=== PATIENT | male | born 1965 | race Caucasian/White ===

== ENCOUNTER 2019-01-19 07:55 | Day surgery (SDC) | payer OTHER ==
[2019-01-17 11:57] VITALS: BMI 26.1
[2019-01-19] MEDS ORDERED: LIDOCAINE HCL/PF 2% SDV 5ML VIAL ONE (08:49)
[2019-01-19] MEDS ORDERED: PROPOFOL 20 ML ONE ×2 (08:49)
[2019-01-19 17:41] VITALS: BP 144/97; PULSE 72; TEMP 97.9
--- NOTE | 2019-01-21 14:56 | PATH ---
Surgical Pathology Report Patient Name: MILLICENT JENNINGS [facility]. Rec. #: [id number] /Age/Gender: 1965 (Age: 53) / M Account: [id number] Location: [facility] Taken: 01/19/2019 Received: 01/19/2019 Reported: 01/21/2019 Physicians: Jc Ireland M.D. Specimen(s) Received A: POLYP RIGHT COLON B: POLYP HEPATIC FLEXURE C: POLYP PROXIMAL SIGMOID COLON D: POLYP DISTAL SIGMOID COLON Clinical History Screening Postoperative diagnosis: Diverticulosis, colon polyps Final Diagnosis A. RIGHT COLON, POLYP, BIOPSY: TUBULAR ADENOMA. B. HEPATIC FLEXURE, POLYP, BIOPSY: TUBULAR ADENOMA. C. PROXIMAL SIGMOID COLON, POLYP, BIOPSY: HYPERPLASTIC POLYP. D. DISTAL SIGMOID COLON, POLYP, BIOPSY: HYPERPLASTIC POLYP. Electronically Signed Shima Thomas M.D. Gross Description A. Received in formalin, labeled "biopsy polyp right colon" is a granados, irregular portion of soft tissue measuring 0.5 cm. in greatest dimension. The specimen is submitted in toto in one cassette. B. Received in formalin, labeled "biopsy polyp hepatic flexure" is a granados, irregular portion of soft tissue measuring 0.2 cm. in greatest dimension. The specimen is submitted in toto in one cassette. C. Received in formalin, labeled "biopsy polyp proximal sigmoid colon" is a granados, irregular portion of soft tissue measuring 0.2 cm. in greatest dimension. The specimen is submitted in toto in one cassette. D. Received in formalin, labeled "biopsy polyp distal sigmoid colon" is a granados, irregular portion of soft tissue measuring 0.2 cm. in greatest dimension. The specimen is submitted in toto in one cassette. 01/20/2019 saudi01/20/2019
== END 2019-01-19 10:22 | disposition home or self-care (01) ==
LOC: FASU-ENDO 07:55
PROVIDERS: ATTEND Internal Medicine Gastroenterology
PROC: 0DBL8ZX Excision of Transverse Colon, Via Natural or Artificial Opening Endoscopic, Diagnostic (ICD-10-PCS; 2019-01-19)
PROC: 0DBN8ZX Excision of Sigmoid Colon, Via Natural or Artificial Opening Endoscopic, Diagnostic (ICD-10-PCS; 2019-01-19)
PROC: 0DBN8ZX Excision of Sigmoid Colon, Via Natural or Artificial Opening Endoscopic, Diagnostic (ICD-10-PCS; 2019-01-19)
PROC: 0DBK8ZX Excision of Ascending Colon, Via Natural or Artificial Opening Endoscopic, Diagnostic (ICD-10-PCS; principal; 2019-01-19 09:36)
DX: Z12.11 Encounter for screening for malignant neoplasm of colon (principal); D12.2 Benign neoplasm of ascending colon; D12.3 Benign neoplasm of transverse colon; D12.5 Benign neoplasm of sigmoid colon; K57.30 Diverticulosis of large intestine without perforation or abscess without bleeding
CPT/HCPCS: 88305-TC

== ENCOUNTER 2020-08-07 11:07 | Emergency (ER) | payer OTHER ==
[2020-08-07 11:17] VITALS: TEMP 97.9; BMI 26.8
[2020-08-07] MEDS ORDERED: FAMOTIDINE 20 MG/50 ML IVPB 20 MG/50 ML MG IVPB ONE ×2 (11:34→11:41)
[2020-08-07] MEDS ORDERED: methylPREDNISolone NA SUCC 125 MG/2 ML VIAL IVPUSH ONE (11:34)
[2020-08-07] MEDS ORDERED: methylPREDNISolone NA SUCC 125 MG/2 ML VIAL ONE (11:41)
[2020-08-07 13:06] VITALS: BP 149/94; PULSE 68
== END 2020-08-07 15:13 | disposition home or self-care (01) ==
LOC: JER 11:07
PROC: 3E033GC Introduction of Other Therapeutic Substance into Peripheral Vein, Percutaneous Approach (ICD-10-PCS; principal; 2020-08-07)
PROC: 3E033GC Introduction of Other Therapeutic Substance into Peripheral Vein, Percutaneous Approach (ICD-10-PCS; 2020-08-07)
PROC: 3E033GC Introduction of Other Therapeutic Substance into Peripheral Vein, Percutaneous Approach (ICD-10-PCS; 2020-08-07)
DX: T78.3XXA Angioneurotic edema, initial encounter (principal)
CPT/HCPCS: 99284-25

== ENCOUNTER 2021-12-30 11:02 | Day surgery (SDC) | payer OTHER ==
[2021-12-26 15:21] VITALS: BMI 25.8
[2021-12-30 13:00] VITALS: RESP 18
[2021-12-30 13:38] VITALS: TEMP 97.8
[2021-12-30 13:39] VITALS: BP 128/79; PULSE 79
== END 2021-12-30 13:39 | disposition home or self-care (01) ==
LOC: FASU-ENDO 11:02
PROVIDERS: ATTEND Internal Medicine Gastroenterology
PROC: 0DBM8ZX Excision of Descending Colon, Via Natural or Artificial Opening Endoscopic, Diagnostic (ICD-10-PCS; principal; 2021-12-30 12:46)
DX: Z12.11 Encounter for screening for malignant neoplasm of colon (principal); Z86.010 Personal history of colon polyps; K63.5 Polyp of colon; K57.30 Diverticulosis of large intestine without perforation or abscess without bleeding
CPT/HCPCS: 88305-TC

== ENCOUNTER 2022-06-12 19:32 | Inpatient (IN) | payer OTHER ==
[2022-06-12 20:19] LABS: PH,URINE 6.5 (5.0-8.0); URINE APPEARANCE CLEAR; URINE BILIRUBIN NEGATIVE (NEGATIVE); URINE COLOR YELLOW; URINE GLUCOSE (UA) NEGATIVE (NEGATIVE); URINE KETONE TRACE (NEGATIVE); URINE LEUK ESTERASE NEGATIVE (NEGATIVE); URINE NITRITE NEGATIVE (NEGATIVE); URINE PROTEIN NEGATIVE (NEGATIVE); URINE UROBILINOGEN 0.2 mg/dL (0.2-1.0)
[2022-06-12] MEDS ORDERED: morphine SULFATE 4 MG/ML VIAL ONE (20:33)
[2022-06-12] MEDS ORDERED: morphine CARPU-JECT 4 MG/1 ML DISP.SYRIN IVPUSH ONE (20:33)
[2022-06-12 20:42] LABS: BASO % 0.5 % (0-2.0); EOS % 0.6 % (0-4.5); HEMATOCRIT 40.3 % (35.4-49); HEMOGLOBIN 13.9 GM/dL (11.7-16.9); LYMPH % 8.4 % (8-40); MCH 30.8 pg (25.7-33.7); MCHC 34.5 g/dl (32.0-35.9); MEAN CELL VOLUME 89.2 fl (80-96); MEAN PLT VOLUME 9.6 fl (7.5-11.1); MONO % 5.6 % (3.8-10.2); NEUT % 84.9 % (42.8-82.8); PLATELET COUNT 239 10^3/uL (134-434); RBC 4.51 M/mm3 (4.00-5.60); RDW 13.1 % (11.9-15.9); WHITE BLOOD COUNT 13.8 K/mm3 (4.0-10.0)
[2022-06-12 20:50] LABS: INR 0.97 (0.83-1.09); PROTHROMBIN TIME (PATIENT) 11.2 SEC (9.7-13.0)
[2022-06-12 20:53] LABS: ACTIVATED PTT 29.9 SECONDS (25.2-36.5)
[2022-06-12 21:02] LABS: CALCIUM 8.9 mg/dL (8.5-10.1)
[2022-06-12 21:03] LABS: ALBUMIN 3.6 g/dl (3.4-5.0); BLOOD UREA NITROGEN 12.5 mg/dL (7-18)
[2022-06-12 21:05] LABS: CREATININE 1.1 mg/dL (0.55-1.3)
[2022-06-12 21:07] LABS: BILIRUBIN,TOTAL 0.4 mg/dL (0.2-1); TOT PROT 7.1 g/dl (6.4-8.2)
[2022-06-12] MEDS ORDERED: morphine CARPU-JECT 2 MG/1 ML DISP.SYRIN IVPUSH ONE (23:46)
[2022-06-13] MEDS ORDERED: KETOROLAC TROMETHAMINE 15 MG/ML VIAL IVPUSH PRN (00:14)
[2022-06-13] MEDS ORDERED: ACETAMINOPHEN 1000 MG/100 ML BAG IVPB PRN (00:14)
[2022-06-13] MEDS ORDERED: MELATONIN 5 MG TABLETS PO PRN (00:15)
[2022-06-13] MEDS ORDERED: SODIUM CHLORIDE 1,000 ML IV SCH ×2 (00:30→14:45)
[2022-06-13] MEDS ORDERED: CEFTRIAXONE 2 GM/100 ML BAG IVPB ONE (02:19)
[2022-06-13] MEDS: CEFTRIAXONE 2 GM/100 ML BAG IVPB SCH (02:23)
[2022-06-13 03:56] VITALS: BMI 23.8
[2022-06-13] MEDS ORDERED: TAMSULOSIN HCL 0.4 MG CAP PO SCH (08:30)
[2022-06-13 09:02] LABS: BASO % 0.6 % (0-2.0); EOS % 1.6 % (0-4.5); HEMATOCRIT 40.4 % (35.4-49); HEMOGLOBIN 13.8 GM/dL (11.7-16.9); LYMPH % 12.3 % (8-40); MCH 30.4 pg (25.7-33.7); MCHC 34.2 g/dl (32.0-35.9); MEAN CELL VOLUME 88.8 fl (80-96); MEAN PLT VOLUME 10.2 fl (7.5-11.1); MONO % 8.4 % (3.8-10.2); NEUT % 77.1 % (42.8-82.8); PLATELET COUNT 226 10^3/uL (134-434); RBC 4.55 M/mm3 (4.00-5.60); RDW 13.2 % (11.9-15.9); WHITE BLOOD COUNT 8.9 K/mm3 (4.0-10.0)
[2022-06-13 09:20] LABS: CALCIUM 8.7 mg/dL (8.5-10.1)
[2022-06-13 09:21] LABS: ALBUMIN 3.3 g/dl (3.4-5.0); BLOOD UREA NITROGEN 10.8 mg/dL (7-18); MAGNESIUM 2.1 mg/dL (1.8-2.4)
[2022-06-13 09:24] LABS: CREATININE 0.9 mg/dL (0.55-1.3); PHOSPHOROUS 2.8 mg/dL (2.5-4.9)
[2022-06-13 09:25] LABS: BILIRUBIN,TOTAL 1.1 mg/dL (0.2-1); TOT PROT 6.6 g/dl (6.4-8.2)
[2022-06-13] MEDS: ENOXAPARIN NA (PORCINE) 40 MG/0.4 ML DISP.SYRIN SQ SCH (10:02)
[2022-06-13] MEDS ORDERED: INSULIN (NOVOLOG) ASPART 100 UNITS/ML 10ML VIAL ONE (12:20)
[2022-06-13] MEDS ORDERED: DEXTROSE 5%-NORMAL SALINE 1,000 ML IV SCH (17:45)
[2022-06-13] MEDS: traMADol HCL 50 MG TABLET PO PRN (22:44)
[2022-06-13] MEDS: TAMSULOSIN HCL 0.4 MG CAP PO SCH (22:46)
[2022-06-14 09:10] LABS: BASO % 0.9 % (0-2.0); EOS % 4.5 % (0-4.5); HEMATOCRIT 41.1 % (35.4-49); HEMOGLOBIN 13.8 GM/dL (11.7-16.9); LYMPH % 23.1 % (8-40); MCH 30.5 pg (25.7-33.7); MCHC 33.5 g/dl (32.0-35.9); MEAN PLT VOLUME 9.8 fl (7.5-11.1); MONO % 9.4 % (3.8-10.2); NEUT % 62.1 % (42.8-82.8); PLATELET COUNT 243 10^3/uL (134-434); RBC 4.52 M/mm3 (4.00-5.60); WHITE BLOOD COUNT 5.1 K/mm3 (4.0-10.0)
[2022-06-14 09:21] LABS: ALBUMIN 3.3 g/dl (3.4-5.0); BLOOD UREA NITROGEN 7.8 mg/dL (7-18)
[2022-06-14 09:23] LABS: MAGNESIUM 2.3 mg/dL (1.8-2.4)
[2022-06-14 09:24] LABS: CALCIUM 8.8 mg/dL (8.5-10.1); CREATININE 0.9 mg/dL (0.55-1.3)
[2022-06-14 09:26] LABS: TOT PROT 6.8 g/dl (6.4-8.2)
[2022-06-14 10:57] LABS: URIC ACID 5.8 mg/dL (2.6-7.2)
[2022-06-14] MEDS: ENOXAPARIN NA (PORCINE) 40 MG/0.4 ML DISP.SYRIN SQ SCH (10:57)
[2022-06-14] MEDS: CEFTRIAXONE 2 GM/100 ML BAG IVPB SCH (10:59)
[2022-06-14] MEDS ORDERED: CEFTRIAXONE 2 GM in DEXTROSE 5%-WATER 100 ML IVPB SCH (11:00)
[2022-06-14] MEDS: PANTOPRAZOLE SODIUM 40 MG VIAL IVPUSH SCH (11:50)
[2022-06-14] MEDS: AMINO ACIDS 4.25%/D5W 1,000 ML IV SCH ×2 (12:19→22:25)
[2022-06-14] MEDS ORDERED: ACETAMINOPHEN 1000 MG/100 ML BAG IVPB ONE (12:45)
[2022-06-14] MEDS ORDERED: LIDOCAINE 5% TOPICAL PATCH TP ONE (15:05)
[2022-06-14] MEDS: PIPERACILLIN/TAZOB 3.375 GM 3.375 GM in DEXTROSE 5%-WATER - 50 ML IVPB SCH (17:43)
[2022-06-14] MEDS: TAMSULOSIN HCL 0.4 MG CAP PO SCH (22:26)
[2022-06-14] MEDS: LIDOCAINE PATCH REMOVAL MC SCH (23:05)
[2022-06-15] MEDS: PIPERACILLIN/TAZOB 3.375 GM 3.375 GM in DEXTROSE 5%-WATER - 50 ML IVPB SCH ×3 (02:25→17:50)
[2022-06-15] MEDS: AMINO ACIDS 4.25%/D5W 1,000 ML IV SCH ×4 (02:42→22:04)
[2022-06-15 09:36] LABS: BASO % 0.3 % (0-2.0); EOS % 4.6 % (0-4.5); HEMATOCRIT 36.8 % (35.4-49); HEMOGLOBIN 12.6 GM/dL (11.7-16.9); MCH 30.8 pg (25.7-33.7); MCHC 34.2 g/dl (32.0-35.9); MEAN CELL VOLUME 89.9 fl (80-96); MEAN PLT VOLUME 9.9 fl (7.5-11.1); MONO % 8.4 % (3.8-10.2); NEUT % 71.7 % (42.8-82.8); PLATELET COUNT 232 10^3/uL (134-434); RBC 4.09 M/mm3 (4.00-5.60); RDW 13.1 % (11.9-15.9); WHITE BLOOD COUNT 6.1 K/mm3 (4.0-10.0)
[2022-06-15 10:04] LABS: CALCIUM 8.7 mg/dL (8.5-10.1)
[2022-06-15 10:05] LABS: BLOOD UREA NITROGEN 11.2 mg/dL (7-18); MAGNESIUM 2.2 mg/dL (1.8-2.4)
[2022-06-15 10:08] LABS: CREATININE 0.8 mg/dL (0.55-1.3)
[2022-06-15 10:10] LABS: BILIRUBIN,TOTAL 0.9 mg/dL (0.2-1); TOT PROT 6.2 g/dl (6.4-8.2)
[2022-06-15] MEDS: ENOXAPARIN NA (PORCINE) 40 MG/0.4 ML DISP.SYRIN SQ SCH (11:13)
[2022-06-15] MEDS: PANTOPRAZOLE SODIUM 40 MG VIAL IVPUSH SCH (11:14)
[2022-06-15] MEDS: TAMSULOSIN HCL 0.4 MG CAP PO SCH (22:03)
[2022-06-15] MEDS: LIDOCAINE PATCH REMOVAL MC SCH (22:04)
[2022-06-16] MEDS: PIPERACILLIN/TAZOB 3.375 GM 3.375 GM in DEXTROSE 5%-WATER - 50 ML IVPB SCH ×3 (02:09→17:24)
[2022-06-16] MEDS: AMINO ACIDS 4.25%/D5W 1,000 ML IV SCH ×2 (06:41→19:27)
[2022-06-16] MEDS: PANTOPRAZOLE SODIUM 40 MG VIAL IVPUSH SCH (10:47)
[2022-06-16] MEDS: ENOXAPARIN NA (PORCINE) 40 MG/0.4 ML DISP.SYRIN SQ SCH (10:50)
[2022-06-16 11:49] LABS: BASO % 0.8 % (0-2.0); EOS % 3.5 % (0-4.5); HEMATOCRIT 41.9 % (35.4-49); HEMOGLOBIN 14.4 GM/dL (11.7-16.9); LYMPH % 16.1 % (8-40); MCH 30.9 pg (25.7-33.7); MCHC 34.4 g/dl (32.0-35.9); MEAN PLT VOLUME 9.6 fl (7.5-11.1); NEUT % 73.6 % (42.8-82.8); PLATELET COUNT 282 10^3/uL (134-434); RBC 4.66 M/mm3 (4.00-5.60); RDW 12.9 % (11.9-15.9); WHITE BLOOD COUNT 5.9 K/mm3 (4.0-10.0)
[2022-06-16 12:14] LABS: ALBUMIN 3.5 g/dl (3.4-5.0); BLOOD UREA NITROGEN 15.3 mg/dL (7-18); CALCIUM 9.5 mg/dL (8.5-10.1)
[2022-06-16 12:15] LABS: MAGNESIUM 2.2 mg/dL (1.8-2.4)
[2022-06-16 12:17] LABS: CREATININE 0.8 mg/dL (0.55-1.3)
[2022-06-16 12:18] LABS: BILIRUBIN,TOTAL 0.8 mg/dL (0.2-1); TOT PROT 7.3 g/dl (6.4-8.2)
[2022-06-16] MEDS: TAMSULOSIN HCL 0.4 MG CAP PO SCH (22:33)
[2022-06-16] MEDS: LIDOCAINE PATCH REMOVAL MC SCH (22:34)
[2022-06-16] MEDS: traMADol HCL 50 MG TABLET PO PRN (22:41)
[2022-06-17] MEDS: PIPERACILLIN/TAZOB 3.375 GM 3.375 GM in DEXTROSE 5%-WATER - 50 ML IVPB SCH ×3 (01:14→17:53)
[2022-06-17 09:04] LABS: EOS % 3.8 % (0-4.5); HEMOGLOBIN 14.3 GM/dL (11.7-16.9); LYMPH % 18.1 % (8-40); MCH 30.9 pg (25.7-33.7); MCHC 34.7 g/dl (32.0-35.9); MEAN CELL VOLUME 88.9 fl (80-96); MEAN PLT VOLUME 9.2 fl (7.5-11.1); MONO % 6.1 % (3.8-10.2); PLATELET COUNT 287 10^3/uL (134-434); RBC 4.62 M/mm3 (4.00-5.60); RDW 12.8 % (11.9-15.9); WHITE BLOOD COUNT 5.3 K/mm3 (4.0-10.0)
[2022-06-17 09:34] LABS: ALBUMIN 3.6 g/dl (3.4-5.0); BLOOD UREA NITROGEN 12.6 mg/dL (7-18); CALCIUM 9.4 mg/dL (8.5-10.1); MAGNESIUM 2.3 mg/dL (1.8-2.4)
[2022-06-17 09:39] LABS: BILIRUBIN,TOTAL 0.7 mg/dL (0.2-1); TOT PROT 7.3 g/dl (6.4-8.2)
[2022-06-17 09:40] LABS: CREATININE 0.9 mg/dL (0.55-1.3)
[2022-06-17] MEDS: ENOXAPARIN NA (PORCINE) 40 MG/0.4 ML DISP.SYRIN SQ SCH (10:31)
[2022-06-17] MEDS: PANTOPRAZOLE SODIUM 40 MG VIAL IVPUSH SCH (10:31)
[2022-06-17] MEDS ORDERED: INSULIN (NOVOLOG) ASPART 100 UNITS/ML 10ML VIAL ONE (10:47)
[2022-06-17] MEDS ORDERED: ACETAMINOPHEN 500 MG TABLET (FP) PO PRN (17:57)
[2022-06-17] MEDS: TAMSULOSIN HCL 0.4 MG CAP PO SCH (22:03)
[2022-06-18] MEDS: PIPERACILLIN/TAZOB 3.375 GM 3.375 GM in DEXTROSE 5%-WATER - 50 ML IVPB SCH ×2 (02:02→09:24)
[2022-06-18] MEDS: ENOXAPARIN NA (PORCINE) 40 MG/0.4 ML DISP.SYRIN SQ SCH (09:23)
[2022-06-18 09:58] LABS: BASO % 1.1 % (0-2.0); EOS % 4.2 % (0-4.5); HEMATOCRIT 40.2 % (35.4-49); HEMOGLOBIN 13.9 GM/dL (11.7-16.9); LYMPH % 22.4 % (8-40); MCH 30.9 pg (25.7-33.7); MCHC 34.6 g/dl (32.0-35.9); MEAN CELL VOLUME 89.3 fl (80-96); MEAN PLT VOLUME 9.8 fl (7.5-11.1); MONO % 7.9 % (3.8-10.2); NEUT % 64.4 % (42.8-82.8); PLATELET COUNT 281 10^3/uL (134-434); RDW 12.9 % (11.9-15.9); WHITE BLOOD COUNT 4.8 K/mm3 (4.0-10.0)
[2022-06-18 10:00] VITALS: BP 138/92; PULSE 76; RESP 20; TEMP 98.6
[2022-06-18] MEDS ORDERED: PANTOPRAZOLE 40 MG TABLET PO SCH (10:00)
[2022-06-18 10:20] LABS: CALCIUM 9.2 mg/dL (8.5-10.1)
[2022-06-18 10:21] LABS: ALBUMIN 3.5 g/dl (3.4-5.0); BLOOD UREA NITROGEN 9.8 mg/dL (7-18); MAGNESIUM 2.4 mg/dL (1.8-2.4)
[2022-06-18 10:24] LABS: CREATININE 0.9 mg/dL (0.55-1.3)
[2022-06-18 10:25] LABS: BILIRUBIN,TOTAL 0.4 mg/dL (0.2-1)
[2022-06-18] MEDS ORDERED: FUROSEMIDE 40 MG/4 ML INJECTABLE VIAL IVPUSH ONE (10:55)
== END 2022-06-18 14:15 | disposition home or self-care (01) | DRG 392 ==
LOC: JER 19:32 → JERBED 23:47 → INTOOBSV 23:47 → J8W 06-13 02:51 → OBSVTOIN 06-13 14:39
PROVIDERS: ADMIT Internal Medicine; ATTEND Nurse Practitioner Acute Care
DX: K57.32 Diverticulitis of large intestine without perforation or abscess without bleeding (principal); I10 Essential (primary) hypertension; N40.0 Benign prostatic hyperplasia without lower urinary tract symptoms; K76.0 Fatty (change of) liver, not elsewhere classified; M25.572 Pain in left ankle and joints of left foot; F10.90 Alcohol use, unspecified, uncomplicated
CPT/HCPCS: 0241U-QW; 36415; 73610-TC-LT-FY; 73630-TC-LT; 74177-TC; 80053; 81003; 83690; 83735; 84100; 84550; 85025; 85610; 85730; 87086; 93005; 93010; 93306-TC; 99285-25; G0378; Q9967

== ENCOUNTER 2022-09-01 08:33 | Emergency (ER) | payer OTHER ==
[2022-09-01 08:50] VITALS: BP 157/96; PULSE 75; RESP 18; TEMP 98.3; BMI 25.8
== END 2022-09-01 10:18 | disposition home or self-care (01) ==
LOC: JER 08:33 → JERFT 08:33
DX: M79.672 Pain in left foot (principal); D16.32 Benign neoplasm of short bones of left lower limb; M79.674 Pain in right toe(s); M79.675 Pain in left toe(s); M79.89 Other specified soft tissue disorders
CPT/HCPCS: 73660-TC-FY; 99283-25

== ENCOUNTER 2022-12-22 04:05 | Day surgery (SDC) | payer OTHER ==
[2022-12-19 10:56] VITALS: BMI 25.2
[2022-12-22] MEDS ORDERED: PROPOFOL 20 ML ONE (09:58)
[2022-12-22] MEDS ORDERED: MIDAZOLAM HCL 2 MG/2 ML SINGLE DOSE VIAL ONE (09:58)
[2022-12-22] MEDS ORDERED: ceFAZolin SODIUM 1 GM VIAL ONE (10:10)
[2022-12-22] MEDS ORDERED: ceFAZolin SODIUM 1 GM VIAL IVPB ONE (10:11)
[2022-12-22] MEDS ORDERED: ONDANSETRON 4 MG/2 ML VIAL ONE (10:12)
[2022-12-22] MEDS ORDERED: DEXAMETHASONE SOD PHOSPHATE 4 MG/1 ML VIAL ONE (10:12)
[2022-12-22] MEDS ORDERED: ONDANSETRON 4 MG/2 ML VIAL IVPUSH PRN (11:03)
[2022-12-22] MEDS: LACTATED RINGERS SOLUTION 1,000 ML IV SCH (12:50)
[2022-12-22 18:23] VITALS: RESP 18
[2022-12-22] MEDS ORDERED: ACETAMINOPHEN 325 MG TABLET (FP) PO PRN (20:58)
[2022-12-23 06:32] VITALS: BP 127/78
[2022-12-23] MEDS: LACTATED RINGERS SOLUTION 1,000 ML IV SCH (06:53)
[2022-12-23 10:43] VITALS: PULSE 69; TEMP 98.5
== END 2022-12-23 14:06 | disposition home or self-care (01) ==
LOC: JASUSAT 04:05 → J5S 13:16 → JASUSAT 12-23 14:06
PROVIDERS: ATTEND Urology
PROC: 0VT08ZZ Resection of Prostate, Via Natural or Artificial Opening Endoscopic (ICD-10-PCS; principal; 2022-12-22 09:00)
DX: N40.0 Benign prostatic hyperplasia without lower urinary tract symptoms (principal)
CPT/HCPCS: 86850; 86900; 86901; 88305-TC; 94760

== ENCOUNTER 2022-12-23 19:55 | Emergency (ER) | payer OTHER ==
[2022-12-23 20:00] VITALS: BP 162/91; PULSE 71; RESP 18; TEMP 98; BMI 25.2
== END 2022-12-23 23:02 | disposition home or self-care (01) ==
LOC: JER 19:55
PROC: 0T2BX0Z Change Drainage Device in Bladder, External Approach (ICD-10-PCS; principal; 2022-12-23)
DX: R10.33 Periumbilical pain (principal); T83.098A Other mechanical complication of other urinary catheter, initial encounter
CPT/HCPCS: 99283-25